=== PATIENT | male | born 1960 | race Caucasian/White ===

== ENCOUNTER 2020-11-19 14:53 | Emergency (ER) | payer OTHER, BC ==
[2020-11-19 15:24] VITALS: BP 165/106; PULSE 95; TEMP 99.3; BMI 34.2
[2020-11-19] MEDS ORDERED: LIDOCAINE 5% TOPICAL PATCH TP ONE (15:40)
[2020-11-19] MEDS ORDERED: KETOROLAC TROMETHAMINE 60 MG/2 ML VIAL IM ONE (15:40)
[2020-11-19] MEDS ORDERED: KETOROLAC TROMETHAMINE 60 MG/2 ML VIAL ONE (15:56)
[2020-11-19] MEDS ORDERED: LIDOCAINE 5% TOPICAL PATCH ONE (15:56)
[2020-11-19] MEDS ORDERED: LIDOCAINE PATCH REMOVAL MC SCH (22:00)
== END 2020-11-19 16:36 | disposition home or self-care (01) ==
LOC: FER 14:53
PROC: 3E0233Z Introduction of Anti-inflammatory into Muscle, Percutaneous Approach (ICD-10-PCS; principal; 2020-11-19)
DX: M54.30 Sciatica, unspecified side (principal)
CPT/HCPCS: 99284-25

== ENCOUNTER 2023-10-24 19:40 | Emergency (ER) | payer OTHER, BC ==
[2023-10-24 20:00] VITALS: BP 168/98; RESP 18; TEMP 99.1; BMI 33.0
[2023-10-24 21:01] LABS: HEMATOCRIT 43.6 % (35.4-49); HEMOGLOBIN 14.5 G/dL (11.7-16.9); MCH 31.5 pg (25.7-33.7); MCHC 33.2 g/dl (32.0-35.9); MEAN PLT VOLUME 8.5 fl (7.5-11.1); PLATELET COUNT 241.8 10^3/uL (134-434); RBC 4.59 10^6/uL (4.00-5.60); RDW 13.5 % (11.9-15.9); WHITE BLOOD COUNT 7.3 10^3/uL (4.0-10.8)
[2023-10-24 21:17] LABS: ALBUMIN 4.5 g/dl (3.4-5.0); BILIRUBIN,TOTAL 0.5 mg/dl (0.2-1); CALCIUM 9.4 mg/dl (8.5-10.1); CREATININE 0.7 mg/dl (0.6-1.3); POTASSIUM 4.1 mmol/L (3.5-5.1); TOT PROT 6.9 g/dl (6.4-8.2); URIC ACID 3.6 mg/dl (2.6-7.2)
[2023-10-24 22:00] VITALS: PULSE 104
== END 2023-10-24 22:00 | disposition home or self-care (01) ==
LOC: FER 19:40
DX: M79.672 Pain in left foot (principal)
CPT/HCPCS: 36415; 73630-TC-LT; 80053; 84550; 85027; 87040; 99284-25